=== PATIENT | female | born 1955 | race Hispanic/Latino ===

== ENCOUNTER 2022-02-02 06:33 | Day surgery (SDC) | payer MEDICARE ==
[2022-01-29 11:54] LABS: BASOPHILS % (AUTO) 0.5 % (0.0-5.0); EOSINOPHILS % (AUTO) 0.4 % (0.0-8.0); HEMATOCRIT 39.5 % (36-48); LYMPHOCYTES % (AUTO) 38.7 % (21.0-51.0); MEAN CORPUSCULAR HEMOGLOBIN 29.9 pg (27.0-33.0); MEAN CORPUSCULAR HGB CONC 34.2 g/dL (32.0-36.0); MEAN CORPUSCULAR VOLUME 87.4 fL (79-99); MONOCYTES % (AUTO) 7.4 % (3.0-13.0); NEUTROPHILS % (AUTO) 52.7 % (40.0-77.0); PLATELET COUNT (AUTO) 289 K/uL (130-400); RED BLOOD CELL COUNT(AUTO) 4.52 MIL/uL (4.00-5.50); WHITE BLOOD COUNT (AUTO) 9.1 K/uL (4.8-10.8)
[2022-01-29 11:58] LABS: CREATININE 0.8 mg/dL (0.5-1.5); POTASSIUM 4.2 mmol/L (3.5-5.1)
[2022-02-01 08:03] VITALS: BP 120/80
[2022-02-02] VITALS (18 sets, daily range): BP systolic 107–143; BP diastolic 53–78
[~2022-02-02] VITALS: Ht 157.5 cm; Wt 81.6 kg
[2022-02-02] MEDS: CEFAZOLIN SODIUM 1 GM VIAL IVP SCH ×2 (06:00→08:48)
[~2022-02-02 06:33] MED LIST: 0.9% NACL 500ML IV.SOLN 500 ML IV SCH; AMLO-257 PO; HYDR12.54 PO; LEVO112C4 PO; LOSA100T58 PO; OMEP40CA21 PO
[2022-02-02] MEDS ORDERED: BUPIVACAINE/PF 0.5% 30ML VIAL ONE (07:04)
[2022-02-02] MEDS ORDERED: LACTATED RINGERS 1000ML 1,000 ML IV ONE (07:13)
[2022-02-02] MEDS ORDERED: ONDANSETRON 4MG INJ ONE (07:24)
[2022-02-02] MEDS ORDERED: MIDAZOLAM HCL 1 MG/ML 2ML VIAL ONE (07:25)
[2022-02-02] MEDS ORDERED: ROCURONIUM 10MG/1ML SYR 10 MG/ML ML ONE ×2 (07:25→09:37)
[2022-02-02] MEDS ORDERED: FENTANYL CITRATE PF 50 MCG/1 ML 5ML AMP IV ONE (07:25)
[2022-02-02] MEDS ORDERED: PROPOFOL 10 MG/ML 20ML VIAL IV ONE (07:45)
[2022-02-02] MEDS ORDERED: EPHEDRINE SULFATE 50 MG/ML AMPULE ONE (09:38)
[2022-02-02] MEDS ORDERED: GLYCOPYRROLATE 1 MG/5 ML SYRINGE ONE (09:50)
[2022-02-02] MEDS ORDERED: KETOROLAC 30MG VIAL (30MG/ML) ONE (09:51)
[2022-02-02] MEDS ORDERED: NEOSTIGMINE 5MG/5ML SYR IV ONE (09:51)
[2022-02-02] MEDS ORDERED: IPRATROPIUM/ALBUTEROL SULFATE 3 ML SOLUTION IH ONE (10:27)
[2022-02-02] MEDS ORDERED: MEPERIDINE-PF 25 MG/ML SYG ONE (10:40)
== END 2022-02-02 12:00 | disposition home or self-care (01) ==
LOC: DAH 06:33
PROVIDERS: ATTEND Surgery
DX: K40.20 Bilateral inguinal hernia, without obstruction or gangrene, not specified as recurrent (principal); I10 Essential (primary) hypertension; K21.9 Gastro-esophageal reflux disease without esophagitis; F41.9 Anxiety disorder, unspecified; Z90.49 Acquired absence of other specified parts of digestive tract; Z98.890 Other specified postprocedural states; Z98.51 Tubal ligation status; Z79.01 Long term (current) use of anticoagulants; Z82.49 Family history of ischemic heart disease and other diseases of the circulatory system
CPT/HCPCS: 49650; S2900; 36415; 71045; 80048; 85025; 87635; 93005; 94640; A4344; C9803; J0690; J1885; J2175; J2250; J2405; J2704; J2710; J3010; J3490; J7030; J7120